=== PATIENT | male | born 1980 | race African-American/Black ===

== ENCOUNTER 2018-08-29 10:22 | Emergency (ER) | payer MEDICAID ==
[~2018-08-29] VITALS: Ht 172.7 cm; Wt 80.3 kg
[2018-08-29 11:03] VITALS: BP 111/59
== END 2018-08-29 11:04 | disposition home or self-care (01) ==
LOC: ER 10:22
DX: S90.32XA Contusion of left foot, initial encounter (principal); W20.8XXA Other cause of strike by thrown, projected or falling object, initial encounter; Y93.89 Activity, other specified; Y92.39 Other specified sports and athletic area as the place of occurrence of the external cause; Y99.8 Other external cause status
CPT/HCPCS: 73630; A4663